=== PATIENT | female | born 1980 | race Caucasian/White ===

== ENCOUNTER 2022-02-06 18:55 | Emergency (ER) | payer OTHER, SELFPAY ==
--- NOTE | ~2022-02-06 | CT_ITS ---
EXAMINATION: CT ABDOMEN AND PELVIS WITH CONTRAST CLINICAL INFORMATION: Abdominal pain. Obstipation. History of gastric bypass. COMPARISON: 06.22.2016 TECHNIQUE: Multidetector volumetric images were obtained from the superior aspect of the liver through the pubic symphysis following administration 85 mL of Omnipaque 350 intravenous contrast. Sagittal and coronal reformatted images were obtained on the technologist's workstation. Oral contrast: No This CT examination was performed using dose optimization techniques as appropriate, variously including the following: *Automated exposure control *Adjustment of mA and/or kV according to patient size (this includes techniques or standardized protocols for targeted exams where dose is matched to indication/reason for exam; i.e. extremities or head) *Use of iterative reconstruction technique DLP: 737 mGy-cm FINDINGS: LUNG BASES: The visualized lung bases are unremarkable. LIVER, GALLBLADDER, AND BILIARY TREE: The liver is normal in size, shape, and attenuation. No focal hepatic lesion or biliary ductal dilatation is present. Cholecystectomy. PANCREAS: Unremarkable. SPLEEN: Unremarkable. ADRENAL GLANDS: Unremarkable. KIDNEYS AND URETERS: The kidneys are normal in size, shape, and attenuation. No hydronephrosis, hydroureter, or calculi seen. No perinephric stranding. BLADDER: Unremarkable. GASTROINTESTINAL TRACT: Rachel-en-Y gastric bypass. The biliopancreatic limb and rachel limbs, and respective anastomoses are unremarkable. Colon and appendix are unremarkable. ABDOMINAL WALL: No significant hernia is appreciated. LYMPH NODES: Normal. VASCULAR: Unremarkable. PELVIC VISCERA: Unremarkable. OSSEOUS STRUCTURES: Unremarkable. CT/CT abdomen pelvis w con IMPRESSION: No acute findings within the abdomen or pelvis to explain the patient's symptomatology.
--- NOTE | ~2022-02-06 | XR_ITS ---
EXAMINATION: XR CHEST CLINICAL INFORMATION: Weakness COMPARISON: 02/07/2012 TECHNIQUE: Frontal view of the chest was obtained. FINDINGS: No significant abnormality is noted involving the heart, lungs, mediastinum, bony thorax or soft tissues. XR/XR chest 1V IMPRESSION: Unremarkable examination.
[2022-02-06 19:12] VITALS: BP 138/86; PULSE 97; RESP 12; TEMP 37.1; O2SAT 100; BMI 28.1
--- NOTE | 2022-02-06 19:33 | ECG_ITS ---
Test Reason : WEAKNESS Blood Pressure : / mmHG Vent. Rate : 085 BPM Atrial Rate : 085 BPM P-R Int : 146 ms QRS Dur : 084 ms QT Int : 376 ms P-R-T Axes : 051 050 052 degrees QTc Int : 447 ms Normal sinus rhythm Normal ECG When compared to the previous EKG of No significant changes seen Referred By: Generic ED Physician Electronically Signed By:DEAN WHITMAN MD
[2022-02-06 20:04] LABS: MANUAL DIFF FLAG NO
[2022-02-06 20:06] LABS: Basophils Percent Auto 0.3 % (0-2); Eosinophils Absolute Auto 0.1 X10*3/uL (0.0-0.4); Eosinophils Percent Auto 1.2 % (0-4); Hematocrit 37.5 % (37.0-47.0); Hemoglobin 12.4 g/dl (12.0-16.0); Imm Gran Abs Auto 0.01 X10*3/uL (0.00-0.03); Imm Gran Pct Auto 0.1 % (0.0-0.4); Lymphocytes Absolute Auto 1.8 X10*3/uL (1.2-4.9); Lymphocytes Percent Auto 19.6 % (20-40); Mean Corpuscular HGB Conc 33.1 g/dl (31.0-35.0); Mean Corpuscular Hemoglobin 30.3 pg (27.0-33.0); Mean Corpuscular Volume 91.7 fL (80.0-98.0); Mean Platelet Volume 8.5 fL (9.4-12.3); Monocytes Absolute Auto 0.5 X10*3/uL (0.1-1.2); Monocytes Percent Auto 5.3 % (2-11); Neutrophils Absolute Auto 6.7 x10*3/uL (2.0-8.3); Neutrophils Percent Auto 73.5 % (45-73); Platelet Count 315 X10*3/uL (160-400); Red Blood Count 4.09 X10*6/uL (4.20-5.50); Red Cell Distribution Width 14.5 % (11.0-16.0); White Blood Count 9.1 X10*3/uL (4.8-10.8)
[2022-02-06 20:21] LABS: Anion Gap 11 (12-20); Blood Urea Nitrogen 15 mg/dL (9-16); Calcium 9.3 mg/dL (8.4-10.2); Carbon Dioxide 27 mmol/L (22-29); Chloride 107 mmol/L (96-108); Estimated Glomerular Filt Rate > 60; Glucose Random 88 mg/dL (60-115); Potassium 4.6 mmol/L (3.3-5.1); Sodium 140 mmol/L (135-145)
[2022-02-06 20:28] LABS: Troponin-I High Sensitivity < 3.5 ng/L (<3.5-17.0)
[2022-02-06 21:03] VITALS: BP 137/89; PULSE 81; RESP 16; TEMP 36.6; O2SAT 99
[2022-02-06 21:57] LABS: INTERNATIONAL NORM RATIO 0.9 (0.9-1.1); Lactic Acid 0.9 mmol/L (0.5-2.0)
[2022-02-06 22:11] LABS: OBS Int Ctl Valid YES; OBS1 NEGATIVE (NEGATIVE)
--- NOTE | 2022-02-06 22:28 | ED_ITS ---
HPI - General Adult General Chief complaint: General Medical Stated complaint: weakness, coffee ground stools Time Seen by Provider: 02/06/22 21:18 Source: patient Mode of arrival: ambulatory History of Present Illness HPI narrative: 41-year-old female with history of is gastric bypass presents with onset of back pain since last night associated with nausea, vomiting and ?coffee-ground stool? but denies any urinary pain/frequency/burning. Patient reports she is no longer passing flatus. Positive surgical history SBO, intussusception, for C-sections and cholecystectomy. Related Data Previous Rx's Medication Instructions Recorded famotidine 20 mg tablet (Pepcid) 20 mg PO BEDTIME 30 Days #30 tab 02/07/22 ondansetron 4 mg disintegrating 4 mg PO Q8H PRN #10 tab 02/07/22 tablet Allergies Allergy/AdvReac Type Severity Reaction Status Date / Time codeine [CODEINE] Allergy Intermediate HIVES Unverified 07/09/20 14:59 levofloxacin [From LEVAQUIN] Allergy Intermediate HIVES Unverified 07/09/20 14:59 ceftriaxone [From ROCEPHIN] Allergy Unknown HTN Unverified 07/09/20 14:59 morphine [MORPHINE] Allergy Unknown PALPITATION Unverified 07/09/20 14:59 S promethazine [Phenergan] Allergy Unknown Verified 06/14/18 00:00 From PHENERGAN Allergy Intermediate HIVES Uncoded 07/09/20 14:59 Effexor Allergy Unknown Uncoded 06/14/18 00:00 Review of Systems Review of Systems: Pertinent positives and negatives as stated in HPI 10 point review of systems is otherwise negative. PMFSH Past Medical History Source: nursing notes reviewed Social History Social History Advance Directives: No Advance Directives Information Provided: No Patient : No Physical Exam ED Vital Signs: Vital Signs - 24 hr 02/06/22 19:12 02/06/22 21:03 02/06/22 22:47 Temperature 98.8 F 97.8 F 98.4 F Pulse Rate 97 81 76 Respiratory Rate 12 16 14 Blood Pressure 138/86 137/89 134/92 H Pulse Oximetry 100 99 97 BMI result Body Mass Index 28.1 VITAL SIGNS: Reviewed. GENERAL: Well developed, well nourished, in no acute distress. HEAD: Normocephalic/atraumatic EYES: PERRLA, EOMI EARS: Ext canals without abnormality OROPHARYNX: no oral lesions noted, posterior pharynx clear LUNGS: Normal breath sounds. No adventitious sounds or accessory muscle use. SpO2<100> CARDIOVASCULAR: Regular rate and rhythm without noted murmurs, no JVD or lower extremity edema. ABDOMEN: Soft, mild discomfort on deep palpation, non-distended with hypoactive bowel sounds. ELA: No tags or lesions, empty rectal vault with scan stool, no blood, good rectal tone SKIN: Inspection of the skin reveals no rashes NEUROLOGIC: Alert and oriented x 4. Strength and sensation to light touch were grossly intact x 4. Course Course Course Narrative: 41-year-old female with history and clinical presentation suggestive of possible SBO but less likely felt to be GI bleed. Review of all investigations negative for acute findings. Patient was provided with Tylenol and Zofran in feels somewhat better and is able to tolerate p.o. intake. Patient was informed of all results and will be provided with a GI cocktail in discharged home in stable condition with antacid medication as well as antinausea medication. Medical Decision Making Lab Data Result diagrams: 02/06/22 19:56 02/06/22 19:56 Labs: Lab Results 02/06/22 02/06/22 02/06/22 Range/Units 19:56 19:56 19:56 WBC 9.1 (4.8-10.8) X10*3/uL RBC 4.09 L (4.20-5.50) X10*6/uL Hgb 12.4 (12.0-16.0) g/dl Hct 37.5 (37.0-47.0) % MCV 91.7 (80.0-98.0) fL MCH 30.3 (27.0-33.0) pg MCHC 33.1 (31.0-35.0) g/dl RDW 14.5 (11.0-16.0) % Plt Count 315 (160-400) X10*3/uL MPV 8.5 L (9.4-12.3) fL Immature Gran % (Auto) 0.1 (0.0-0.4) % Neut % (Auto) 73.5 H (45-73) % Lymph % (Auto) 19.6 L (20-40) % Davis % (Auto) 5.3 (2-11) % Eos % (Auto) 1.2 (0-4) % Baso % (Auto) 0.3 (0-2) % Lymph # (Auto) 1.8 (1.2-4.9) X10*3/uL Davis # (Auto) 0.5 (0.1-1.2) X10*3/uL Eos # (Auto) 0.1 (0.0-0.4) X10*3/uL Baso # (Auto) 0.0 (0.0-0.2) X10*3/uL Abs Immat Gran (auto) 0.01 (0.00-0.03) X10*3/uL Absolute Neuts (auto) 6.7 (2.0-8.3) x10*3/uL Absolute Nucleated RBC 0.000 (0.0-0.012) X10*3/uL Nucleated RBC % (auto) 0.0 (0.0-0.2) /100WBC PT (9.9-13.0) SEC INR (0.9-1.1) Sodium 140 (135-145) mmol/L Potassium 4.6 (3.3-5.1) mmol/L Chloride 107 (96-108) mmol/L Carbon Dioxide 27 (22-29) mmol/L Anion Gap 11 L (12-20) BUN 15 (9-16) mg/dL Creatinine 0.84 (0.5-1.4) mg/dL Estim Creat Clear Calc 100.0 Estimated GFR > 60 Random Glucose 88 (60-115) mg/dL Lactic Acid (0.5-2.0) mmol/L Calcium 9.3 (8.4-10.2) mg/dL Troponin I High Sens < 3.5 (<3.5-17.0) ng/L Beta HCG, Quant < 2 mIU/mL Urine Color Urine Appearance Urine pH (5.0-8.0) Ur Specific [place] (1.005-1.025) Urine Protein (NEG-TRACE) MG/DL Urine Glucose (UA) (NEG) MG/DL Urine Ketones (NEG) MG/DL Urine Blood (NEG) Urine Nitrite (NEG) Ur Leukocyte Esterase (NEG) Urine RBC (0) /HPF Urine WBC (0-4) /HPF Ur Squamous Epith Cells /LPF Calcium Phosphate Cryst /LPF Urine Bacteria /LPF Urine Mucus /LPF Stool Occult Blood (NEGATIVE) Influenza Type A (PATTI) (Negative) Influenza Type B (PATTI) (Negative) Influenza A & B Note 02/06/22 02/06/22 02/06/22 Range/Units 21:36 21:36 22:03 WBC (4.8-10.8) X10*3/uL RBC (4.20-5.50) X10*6/uL Hgb (12.0-16.0) g/dl Hct (37.0-47.0) % MCV (80.0-98.0) fL MCH (27.0-33.0) pg MCHC (31.0-35.0) g/dl RDW (11.0-16.0) % Plt Count (160-400) X10*3/uL MPV (9.4-12.3) fL Immature Gran % (Auto) (0.0-0.4) % Neut % (Auto) (45-73) % Lymph % (Auto) (20-40) % Davis % (Auto) (2-11) % Eos % (Auto) (0-4) % Baso % (Auto) (0-2) % Lymph # (Auto) (1.2-4.9) X10*3/uL Davis # (Auto) (0.1-1.2) X10*3/uL Eos # (Auto) (0.0-0.4) X10*3/uL Baso # (Auto) (0.0-0.2) X10*3/uL Abs Immat Gran (auto) (0.00-0.03) X10*3/uL Absolute Neuts (auto) (2.0-8.3) x10*3/uL Absolute Nucleated RBC (0.0-0.012) X10*3/uL Nucleated RBC % (auto) (0.0-0.2) /100WBC PT 10.0 (9.9-13.0) SEC INR 0.9 (0.9-1.1) Sodium (135-145) mmol/L Potassium (3.3-5.1) mmol/L Chloride (96-108) mmol/L Carbon Dioxide (22-29) mmol/L Anion Gap (12-20) BUN (9-16) mg/dL Creatinine (0.5-1.4) mg/dL Estim Creat Clear Calc Estimated GFR Random Glucose (60-115) mg/dL Lactic Acid 0.9 (0.5-2.0) mmol/L Calcium (8.4-10.2) mg/dL Troponin I High Sens (<3.5-17.0) ng/L Beta HCG, Quant mIU/mL Urine Color Urine Appearance Urine pH (5.0-8.0) Ur Specific [place] (1.005-1.025) Urine Protein (NEG-TRACE) MG/DL Urine Glucose (UA) (NEG) MG/DL Urine Ketones (NEG) MG/DL Urine Blood (NEG) Urine Nitrite (NEG) Ur Leukocyte Esterase (NEG) Urine RBC (0) /HPF Urine WBC (0-4) /HPF Ur Squamous Epith Cells /LPF Calcium Phosphate Cryst /LPF Urine Bacteria /LPF Urine Mucus /LPF Stool Occult Blood NEGATIVE (NEGATIVE) Influenza Type A (PATTI) (Negative) Influenza Type B (PATTI) (Negative) Influenza A & B Note 02/06/22 02/07/22 Range/Units 22:46 00:15 WBC (4.8-10.8) X10*3/uL RBC (4.20-5.50) X10*6/uL Hgb (12.0-16.0) g/dl Hct (37.0-47.0) % MCV (80.0-98.0) fL MCH (27.0-33.0) pg MCHC (31.0-35.0) g/dl RDW (11.0-16.0) % Plt Count (160-400) X10*3/uL MPV (9.4-12.3) fL Immature Gran % (Auto) (0.0-0.4) % Neut % (Auto) (45-73) % Lymph % (Auto) (20-40) % Davis % (Auto) (2-11) % Eos % (Auto) (0-4) % Baso % (Auto) (0-2) % Lymph # (Auto) (1.2-4.9) X10*3/uL Davis # (Auto) (0.1-1.2) X10*3/uL Eos # (Auto) (0.0-0.4) X10*3/uL Baso # (Auto) (0.0-0.2) X10*3/uL Abs Immat Gran (auto) (0.00-0.03) X10*3/uL Absolute Neuts (auto) (2.0-8.3) x10*3/uL Absolute Nucleated RBC (0.0-0.012) X10*3/uL Nucleated RBC % (auto) (0.0-0.2) /100WBC PT (9.9-13.0) SEC INR (0.9-1.1) Sodium (135-145) mmol/L Potassium (3.3-5.1) mmol/L Chloride (96-108) mmol/L Carbon Dioxide (22-29) mmol/L Anion Gap (12-20) BUN (9-16) mg/dL Creatinine (0.5-1.4) mg/dL Estim Creat Clear Calc Estimated GFR Random Glucose (60-115) mg/dL Lactic Acid (0.5-2.0) mmol/L Calcium (8.4-10.2) mg/dL Troponin I High Sens (<3.5-17.0) ng/L Beta HCG, Quant mIU/mL Urine Color YELLOW Urine Appearance CLEAR Urine pH 5.5 (5.0-8.0) Ur Specific [place] 1.025 (1.005-1.025) Urine Protein NEG (NEG-TRACE) MG/DL Urine Glucose (UA) NEG (NEG) MG/DL Urine Ketones NEG (NEG) MG/DL Urine Blood TRACE (NEG) Urine Nitrite NEG (NEG) Ur Leukocyte Esterase NEG (NEG) Urine RBC 0-2 (0) /HPF Urine WBC 0 (0-4) /HPF Ur Squamous Epith Cells 1+ /LPF Calcium Phosphate Cryst TRACE /LPF Urine Bacteria TRACE /LPF Urine Mucus 1+ /LPF Stool Occult Blood (NEGATIVE) Influenza Type A (PATTI) Negative (Negative) Influenza Type B (PATTI) Negative (Negative) Influenza A & B Note See Note Discharge Plan Discharge Clinical Impression: Gastroesophageal reflux disease, Headache Patient Disposition: Home, Self-Care Instructions: Diet for Stomach Ulcers and Gastritis (ED), Gastroesophageal Reflux Disease (ED), General Headache (ED) Additional Instructions: 1. Resume all home medications as prescribed. 2. You have been prescribed both antacid medication as well as antinausea medication. 3. Despite you having a negative workup today I highly recommend that you follow-up with primary care provider by calling the office 1st thing in the morning and setting up an appointment for re-evaluation further outpatient management. Return to the ER for worsening symptoms. Prescriptions: New famotidine [Pepcid] 20 mg tablet 20 mg PO BEDTIME 30 Days Qty: 30 0RF ondansetron 4 mg tablet,disintegrating 4 mg PO Q8H PRN (Reason: nausea and vomiting) Qty: 10 0RF Referrals: Alan Bustos MD [Primary Care Provider] -
[2022-02-06 22:47] VITALS: BP 134/92; PULSE 76; RESP 14; TEMP 36.9; O2SAT 97
[2022-02-06 22:59] LABS: Appearance Urine CLEAR; Color Urine YELLOW; Glucose Urine UA NEG (NEG); Leukocyte Esterase Urine NEG (NEG); Nitrite Urine NEG (NEG); PH 5.5 (5.0-8.0); Specific Gravity - Urine 1.025 (1.005-1.025); UACC Culture Trigger NO; Urine Blood TRACE (NEG); Urine Ketones NEG (NEG); Urine Protein NEG (NEG-TRACE)
[2022-02-06 23:02] LABS: HCG Quantitative < 2 mIU/mL
[2022-02-06 23:05] LABS: Bacteria Urine TRACE /LPF; Calcium Phosphate Crystals Ur TRACE /LPF; Mucus Urine 1+ /LPF; RBC Urine 0-2 /HPF (0); Squamous Epithelial Cell Urine 1+ /LPF; WBC Urine 0 /HPF (0-4)
[2022-02-07] MEDS: ondansetron HCL 4 MG/2 ML VIAL IVPUSH (00:01)
[2022-02-07] MEDS: Acetaminophen 325 MG TABLET 975 MG PO (00:11)
[2022-02-07 00:36] LABS: Influenza A Negative (Negative); Influenza B2 Negative (Negative)
[2022-02-07] MEDS: iohexoL 350 MG/ML 100 ML INFUS..BTL 85 ML IV (00:50)
[2022-02-07] MEDS: Ketorolac Tromethamine 30 MG/ML VIAL 15 MG IVPUSH (02:06)
[2022-02-07] MEDS: Magnesium Hydrox/Alum Hydrox 30 ML ORAL.SUSP PO (02:07)
[2022-02-07] MEDS: Lidocaine HCl Viscous 2 % 15 ML SOLUTION 10 ML MUCOUS MEM (02:07)
[2022-02-07 02:14] VITALS: BP 132/94; PULSE 78; RESP 16; TEMP 36.7; O2SAT 98
== END 2022-02-07 03:05 | disposition home or self-care (01) ==
PROVIDERS: Emergency Provider Student in an Organized Health Care Education/Training Program; PCP Family Medicine
DX: K21.9 Gastro-esophageal reflux disease without esophagitis (principal); R51.9 Headache, unspecified; Z98.84 Bariatric surgery status; Z90.49 Acquired absence of other specified parts of digestive tract
CPT/HCPCS: 36415; 71045; 74177; 80048; 81001; 82272; 83605; 84484; 84702; 85025; 85610; 87040; 87502; 93005; 96374; 96375; 99284; J1885; J2405; Q9967

== ENCOUNTER 2023-06-10 20:41 | Emergency (ER) | payer OTHER, SELFPAY ==
--- NOTE | 2023-06-10 20:44 | ED_ITS ---
HPI - Abdominal Pain General Chief Complaint: Abdominal Pain Stated Complaint: abd pain ?cdiff Time Seen by Provider: 06/10/23 23:15 Source: patient Mode of arrival: ambulatory Limitations: no limitations History of Present Illness HPI narrative: Pain anxiety ADHD recent admission at [facility] 2 weeks ago for questionable SBO status post laparotomy comes here for 4 days of diarrhea with nausea multiple bowel movements watery and foul smell was seen at [facility] and admitted but she came back to our hospital as she did not like the service at [facility],result of C diff was not back yet asking for pain medication on arrival patient was given antibiotics 2 weeks ago patient does have history of depression and anxiety Related Data Home Medications Medication Instructions Recorded Confirmed clonazepam 1 mg tablet 1 mg PO BEDTIME PRN anxiety 06/11/23 06/11/23 methylphenidate HCl 20 mg tablet 20 mg PO QID 06/11/23 06/11/23 pantoprazole 40 mg tablet,delayed 40 mg PO DAILY 06/11/23 06/11/23 release Previous Rx's Medication Instructions Recorded dicyclomine 20 mg tablet 20 mg PO TID PRN abdominal pain 06/11/23 #20 tabs Allergies Allergy/AdvReac Type Severity Reaction Status Date / Time codeine [CODEINE] Allergy Intermediate HIVES Unverified 06/11/23 00:45 levofloxacin [From LEVAQUIN] Allergy Intermediate HIVES Unverified 06/11/23 00:45 ceftriaxone [From ROCEPHIN] Allergy Unknown HTN Unverified 06/11/23 00:45 morphine [MORPHINE] Allergy Unknown PALPITATION Unverified 06/11/23 00:45 S promethazine [Phenergan] Allergy Unknown Muscle Verified 06/11/23 00:45 cramps From PHENERGAN Allergy Intermediate HIVES Uncoded 06/11/23 00:45 Effexor Allergy Unknown Unknown Uncoded 06/11/23 00:45 Review of Systems Review of Systems Yes all other systems are reviewed and are negative PMFSH Past Medical History Medical History (Updated 06/11/23 @ 17:10 by Carlin Clifton MD) ADHD Depression with anxiety Social History Social History Alcohol intake: unknown Use of substances other than those prescribed or required for medical reasons: Unknown Advance Directives: No Patient : No Physical Exam ED Vital Signs: Vital Signs - 24 hr 06/10/23 20:45 06/10/23 22:55 06/10/23 23:42 Temperature 98.1 F 98.3 F 98.3 F Pulse Rate 97 94 84 Respiratory Rate 20 18 16 Blood Pressure 144/105 H 147/89 H 145/94 H Pulse Oximetry 98 99 98 Oxygen Delivery Method Room Air Room Air Room Air 06/11/23 01:44 06/11/23 03:29 06/11/23 02:44 Temperature 98.2 F 98.3 F Pulse Rate 87 90 74 Respiratory Rate 16 20 Blood Pressure 135/87 113/92 H 134/90 H Pulse Oximetry 96 97 95 Oxygen Delivery Method Room Air Room Air Room Air 06/11/23 02:49 06/11/23 03:41 06/11/23 03:44 Temperature Pulse Rate Respiratory Rate 18 18 16 Blood Pressure Pulse Oximetry Oxygen Delivery Method BMI result Body Mass Index 29.0 Appearance: Alert. Oriented X3. Very anxious Eyes: PERRLA, No Nystagmus ENT: Pharynx normal. Oral Mucosa moist Neck: Normal inspection. Neck supple. CVS: Normal heart rate and rhythm. Pulses normal. Respiratory: No respiratory distress. Equal air entry bilateral, no wheezing/rales/rhonchi Abdomen: Soft mild diffuse tenderness, no guarding or rebound tenderness Bowel sounds are present, no mass palpable, no CVA tenderness Skin: Skin warm and dry. Normal skin color. Normal skin turgor. Extremities: No lower extremity edema. No calf tenderness Neuro: Oriented X 3. No motor deficit. No sensory deficit.No cerebellar signs , cranial nerves II-XII intact Course Course Course Narrative: This is a rapid medical exam. Deferred additional HPI, ROS, PE to primary provider. 42 yo female with past medical history of hydrocephalus with [employer] shunt, SBO, intussusception, C-sections and cholecystectomy here with complaints of abdominal pain, diarrhea x 4 days. Had exploratory laparatomy w/ adhesion removal 4 weeks ago (Dr Ross). Patient report she has [place] [facility] [place] but eloped because she didn't feel she was getting the appropriate care. Will obtain labs, UA, stool studies. VSS. Reevaluation(s) Reevaluation #1: Physician observation continued. patient currently more somnolent after medications but seems to be fighting sedation at times walking around without pants on and needing to be redirected by staff. she is no longer hostile. She will need reassessments by staff and CARE team once she is no longer sedated and more appropriate. C diff test was negative. Reevaluation #2: Patient seen by care team advised discharge the patient home patient stable mood at this time discharge patient follow up with therapist Time: 17:11 Medical Decision Making Medical Decision Making [facility] Narrative: Patient just had 1 watery bowel in the ER C diff was negative labs were stable patient is still asking for pain medication when was refused to give her pain m edication she was very angry and said to the nurse as he is suicidal and cut her throat . Per record she has increasing Klonopin and received oxycodone on 05/29 patient was Section 12 for suicidal comments with the plan for crisis evaluation patient was very agitated has 4 point restraints were applied and patient was received Haldol Ativan and Benadryl. Nurse spoke to the patient's who agreed that patient been commenting about suicide feeling at home also with get crisis evaluation Lab Data [facility] Lab Attestation statement: I reviewed the patient's lab results. 06/10/23 21:11 06/10/23 21:11 Labs: Lab Results 06/10/23 06/10/23 06/10/23 Range/Units 21:11 21:11 23:57 WBC 7.9 (4.8-10.8) X10*3/uL RBC 3.72 L (4.20-5.50) X10*6/uL Hgb 11.2 L (12.0-16.0) g/dl Hct 33.8 L (37.0-47.0) % MCV 90.9 (80.0-98.0) fL MCH 30.1 (27.0-33.0) pg MCHC 33.1 (31.0-35.0) g/dl RDW 13.9 (11.0-16.0) % Plt Count 252 (160-400) X10*3/uL MPV 8.2 L (9.4-12.3) fL Immature Gran % (Auto) 0.1 (0.0-0.4) % Neut % (Auto) 52.2 (45-73) % Lymph % (Auto) 32.6 (20-40) % [place] % (Auto) 6.7 (2-11) % Eos % (Auto) 8.0 H (0-4) % Baso % (Auto) 0.4 (0-2) % Lymph # (Auto) 2.6 (1.2-4.9) X10*3/uL [place] # (Auto) 0.5 (0.1-1.2) X10*3/uL Eos # (Auto) 0.6 H (0.0-0.4) X10*3/uL Baso # (Auto) 0.0 (0.0-0.2) X10*3/uL Abs Immat Gran (auto) 0.01 (0.00-0.03) X10*3/uL Absolute Neuts (auto) 4.1 (2.0-8.3) x10*3/uL Absolute Nucleated RBC 0.000 (0.0-0.012) X10*3/uL Nucleated RBC % (auto) 0.0 (0.0-0.2) /100WBC Sodium 142 (135-145) mmol/L Potassium 3.4 D (3.3-5.1) mmol/L Chloride 108 (96-108) mmol/L Carbon Dioxide 26 (22-29) mmol/L Anion Gap 11 L (12-20) BUN 12 (9-16) mg/dL Creatinine 0.85 (0.5-1.4) mg/dL Estim Creat Clear Calc 96.0 Estimated GFR > 60 Random Glucose 83 (60-115) mg/dL Calcium 9.5 (8.4-10.2) mg/dL Magnesium 1.5 L (1.6-2.6) mg/dL Total Bilirubin 0.8 (0.0-1.0) mg/dL Direct Bilirubin 0.3 (0.0-0.5) mg/dL AST 21 (5-31) U/L ALT 12 (0-31) U/L Alkaline Phosphatase 73 (39-117) U/L Total Protein 6.4 L (6.5-8.0) g/dL Albumin 4.0 (3.5-5.0) g/dL Urine Color Yellow Urine Appearance Cloudy Urine pH 6.0 (5.0-9.0) Ur Specific [place] 1.020 (1.005-1.025) Urine Protein 100 (2+) H (Neg-Trace) mg/dL Urine Glucose (UA) Negative (Negative) mg/dL Urine Ketones 15 (Negative) mg/dL Urine Blood Trace H (Negative) Urine Nitrite Negative (Negative) Ur Leukocyte Esterase Trace H (Negative) Urine RBC 11-20 H (0-2) /HPF Urine WBC 0-5 (0-5) /HPF Ur Squamous Epith Cells 11-20 (0-2) /HPF Urine Bacteria None Seen (None Seen) Hyaline Casts 11-20 (0-2) /LPF Urine Test (NEGATIVE) Stl C. cayetanensis PCR (Not Detect.) Stool Rotavirus A PCR (Not Detect.) Stl Adenov F 40/41 PCR (Not Detect.) Stool Astrovirus (PCR) (Not Detect.) Stool Campylobacter PCR (Not Detect.) Stool Cryptosporidium PCR (Not Detect.) Stl Sh Tox Pr E STEC PCR (Not Detect.) Stool E coli O157 PCR (Not Detect.) Stl Enterotoxigenic E PCR (Not Detect.) Stool EPEC (PCR) (Not Detect.) Stool EAEC (PCR) (Not Detect.) Stl E. histolytica PCR (Not Detect.) Stool Giardia Lamblia PCR (Not Detect.) Stl P. shigelloides PCR (Not Detect.) Stool Salmonella PCR (Not Detect.) Stool Sapovirus (PCR) (Not Detect.) Stl Shigella/EIEC PCR (Not Detect.) St Y.enterocolitica PCR (Not Detect.) Stool Vibrio (PCR) (Not Detect.) Stl Vibrio cholerae PCR (Not Detect.) Stl Norovirus GI/GII PCR (Not Detect.) Urine Opiates Screen (Not Detect) Urine Fentanyl Screen (Not Detect) Ur Barbiturates Screen (Not Detect) Ur Phencyclidine Scrn (Not Detect) Ur Amphetamines Screen (Not Detect) U Benzodiazepines Scrn (Not Detect) Urine Cocaine Screen (Not Detect) U Marijuana (THC) Screen (Not Detect) Ethyl Alcohol < 10 mg/dL C. difficile Tox B Gene (Negative) 06/10/23 06/10/23 06/10/23 Range/Units 23:57 23:57 23:57 WBC (4.8-10.8) X10*3/uL RBC (4.20-5.50) X10*6/uL Hgb (12.0-16.0) g/dl Hct (37.0-47.0) % MCV (80.0-98.0) fL MCH (27.0-33.0) pg MCHC (31.0-35.0) g/dl RDW (11.0-16.0) % Plt Count (160-400) X10*3/uL MPV (9.4-12.3) fL Immature Gran % (Auto) (0.0-0.4) % Neut % (Auto) (45-73) % Lymph % (Auto) (20-40) % [place] % (Auto) (2-11) % Eos % (Auto) (0-4) % Baso % (Auto) (0-2) % Lymph # (Auto) (1.2-4.9) X10*3/uL [place] # (Auto) (0.1-1.2) X10*3/uL Eos # (Auto) (0.0-0.4) X10*3/uL Baso # (Auto) (0.0-0.2) X10*3/uL Abs Immat Gran (auto) (0.00-0.03) X10*3/uL Absolute Neuts (auto) (2.0-8.3) x10*3/uL Absolute Nucleated RBC (0.0-0.012) X10*3/uL Nucleated RBC % (auto) (0.0-0.2) /100WBC Sodium (135-145) mmol/L Potassium (3.3-5.1) mmol/L Chloride (96-108) mmol/L Carbon Dioxide (22-29) mmol/L Anion Gap (12-20) BUN (9-16) mg/dL Creatinine (0.5-1.4) mg/dL Estim Creat Clear Calc Estimated GFR Random Glucose (60-115) mg/dL Calcium (8.4-10.2) mg/dL Magnesium (1.6-2.6) mg/dL Total Bilirubin (0.0-1.0) mg/dL Direct Bilirubin (0.0-0.5) mg/dL AST (5-31) U/L ALT (0-31) U/L Alkaline Phosphatase (39-117) U/L Total Protein (6.5-8.0) g/dL Albumin (3.5-5.0) g/dL Urine Color Urine Appearance Urine pH (5.0-9.0) Ur Specific Monroe (1.005-1.025) Urine Protein (Neg-Trace) mg/dL Urine Glucose (UA) (Negative) mg/dL Urine Ketones (Negative) mg/dL Urine Blood (Negative) Urine Nitrite (Negative) Ur Leukocyte Esterase (Negative) Urine RBC (0-2) /HPF Urine WBC (0-5) /HPF Ur Squamous Epith Cells (0-2) /HPF Urine Bacteria (None Seen) Hyaline Casts (0-2) /LPF Urine Test NEGATIVE (NEGATIVE) Stl C. cayetanensis PCR Not Detected (Not Detect.) Stool Rotavirus A PCR Not Detected (Not Detect.) Stl Adenov F 40/41 PCR Not Detected (Not Detect.) Stool Astrovirus (PCR) Not Detected (Not Detect.) Stool Campylobacter PCR Not Detected (Not Detect.) Stool Cryptosporidium PCR Not Detected (Not Detect.) Stl Sh Tox Pr E STEC PCR Not Detected (Not Detect.) Stool E coli O157 PCR Not applicable (Not Detect.) Stl Enterotoxigenic E PCR Not Detected (Not Detect.) Stool EPEC (PCR) Not Detected (Not Detect.) Stool EAEC (PCR) Not Detected (Not Detect.) Stl E. histolytica PCR Not Detected (Not Detect.) Stool Giardia Lamblia PCR Not Detected (Not Detect.) Stl P. shigelloides PCR Not Detected (Not Detect.) Stool Salmonella PCR Not Detected (Not Detect.) Stool Sapovirus (PCR) Not Detected (Not Detect.) Stl Shigella/EIEC PCR Not Detected (Not Detect.) St Y.enterocolitica PCR Not Detected (Not Detect.) Stool Vibrio (PCR) Not Detected (Not Detect.) Stl Vibrio cholerae PCR Not Detected (Not Detect.) Stl Norovirus GI/GII PCR Not Detected (Not Detect.) Urine Opiates Screen (Not Detect) Urine Fentanyl Screen (Not Detect) Ur Barbiturates Screen (Not Detect) Ur Phencyclidine Scrn (Not Detect) Ur Amphetamines Screen (Not Detect) U Benzodiazepines Scrn (Not Detect) Urine Cocaine Screen (Not Detect) U Marijuana (THC) Screen (Not Detect) Ethyl Alcohol mg/dL C. difficile Tox B Gene NEGATIVE (Negative) 06/10/23 Range/Units 23:57 WBC (4.8-10.8) X10*3/uL RBC (4.20-5.50) X10*6/uL Hgb (12.0-16.0) g/dl Hct (37.0-47.0) % MCV (80.0-98.0) fL MCH (27.0-33.0) pg MCHC (31.0-35.0) g/dl RDW (11.0-16.0) % Plt Count (160-400) X10*3/uL MPV (9.4-12.3) fL Immature Gran % (Auto) (0.0-0.4) % Neut % (Auto) (45-73) % Lymph % (Auto) (20-40) % [place] % (Auto) (2-11) % Eos % (Auto) (0-4) % Baso % (Auto) (0-2) % Lymph # (Auto) (1.2-4.9) X10*3/uL [place] # (Auto) (0.1-1.2) X10*3/uL Eos # (Auto) (0.0-0.4) X10*3/uL Baso # (Auto) (0.0-0.2) X10*3/uL Abs Immat Gran (auto) (0.00-0.03) X10*3/uL Absolute Neuts (auto) (2.0-8.3) x10*3/uL Absolute Nucleated RBC (0.0-0.012) X10*3/uL Nucleated RBC % (auto) (0.0-0.2) /100WBC Sodium (135-145) mmol/L Potassium (3.3-5.1) mmol/L Chloride (96-108) mmol/L Carbon Dioxide (22-29) mmol/L Anion Gap (12-20) BUN (9-16) mg/dL Creatinine (0.5-1.4) mg/dL Estim Creat Clear Calc Estimated GFR Random Glucose (60-115) mg/dL Calcium (8.4-10.2) mg/dL Magnesium (1.6-2.6) mg/dL Total Bilirubin (0.0-1.0) mg/dL Direct Bilirubin (0.0-0.5) mg/dL AST (5-31) U/L ALT (0-31) U/L Alkaline Phosphatase (39-117) U/L Total Protein (6.5-8.0) g/dL Albumin (3.5-5.0) g/dL Urine Color Urine Appearance Urine pH (5.0-9.0) Ur Specific [place] (1.005-1.025) Urine Protein (Neg-Trace) mg/dL Urine Glucose (UA) (Negative) mg/dL Urine Ketones (Negative) mg/dL Urine Blood (Negative) Urine Nitrite (Negative) Ur Leukocyte Esterase (Negative) Urine RBC (0-2) /HPF Urine WBC (0-5) /HPF Ur Squamous Epith Cells (0-2) /HPF Urine Bacteria (None Seen) Hyaline Casts (0-2) /LPF Urine Test (NEGATIVE) Stl C. cayetanensis PCR (Not Detect.) Stool Rotavirus A PCR (Not Detect.) Stl Adenov F 40/41 PCR (Not Detect.) Stool Astrovirus (PCR) (Not Detect.) Stool Campylobacter PCR (Not Detect.) Stool Cryptosporidium PCR (Not Detect.) Stl Sh Tox Pr E STEC PCR (Not Detect.) Stool E coli O157 PCR (Not Detect.) Stl Enterotoxigenic E PCR (Not Detect.) Stool EPEC (PCR) (Not Detect.) Stool EAEC (PCR) (Not Detect.) Stl E. histolytica PCR (Not Detect.) Stool Giardia Lamblia PCR (Not Detect.) Stl P. shigelloides PCR (Not Detect.) Stool Salmonella PCR (Not Detect.) Stool Sapovirus (PCR) (Not Detect.) Stl Shigella/EIEC PCR (Not Detect.) St Y.enterocolitica PCR (Not Detect.) Stool Vibrio (PCR) (Not Detect.) Stl Vibrio cholerae PCR (Not Detect.) Stl Norovirus GI/GII PCR (Not Detect.) Urine Opiates Screen POSITIVE H (Not Detect) Urine Fentanyl Screen SEE COMMENTS (Not Detect) Ur Barbiturates Screen Not Detected (Not Detect) Ur Phencyclidine Scrn Not Detected (Not Detect) Ur Amphetamines Screen Not Detected (Not Detect) U Benzodiazepines Scrn Not Detected (Not Detect) Urine Cocaine Screen Not Detected (Not Detect) U Marijuana (THC) Screen Not Detected (Not Detect) Ethyl Alcohol mg/dL C. difficile Tox B Gene (Negative) Medications Administered Discontinued Medications Generic Name Dose Route Start Last Admin Trade Name Freq PRN Reason Stop Dose Admin Dicyclomine HCl 20 mg 06/11/23 00:21 06/11/23 00:38 Dicyclomine Hcl 10 Mg Capsule PO 06/11/23 00:22 20 mg ONCE ONE Administration Diphenhydramine HCl 50 mg 06/11/23 02:40 06/11/23 02:44 Diphenhydramine Hcl 50 Mg/Ml Vial IM 06/11/23 02:41 50 mg ONCE ONE Administration Haloperidol Lactate 5 mg 06/11/23 02:40 06/11/23 02:44 Haloperidol Lactate 5 Mg/Ml Vial IM 06/11/23 02:41 5 mg STAT STA Administration Lorazepam 2 mg 06/11/23 00:21 06/11/23 00:39 Lorazepam 2 Mg/Ml Vial IM 06/11/23 00:22 2 mg ONCE ONE Administration Lorazepam 2 mg 06/11/23 02:40 06/11/23 02:44 Lorazepam 2 Mg/Ml Vial IM 06/11/23 02:41 2 mg ONCE ONE Administration Ondansetron HCl 4 mg 06/11/23 00:21 06/11/23 00:37 Ondansetron Odt 4 Mg Tab.Rapdis TRANSLINGU 06/11/23 00:22 4 mg ONCE ONE Administration Ziprasidone 20 mg 06/11/23 04:32 06/11/23 05:23 Ziprasidone 20 Mg Capsule PO 06/11/23 04:33 20 mg ONCE ONE Administration Discharge Plan Discharge Clinical Impression: Irritable bowel syndrome, Adjustment disorder Patient Disposition: Home, Self-Care Instructions: Irritable Bowel Syndrome (ED), Mood Disorders (ED) Additional Instructions: Take your Klonopin for anxiety Dicyclomine for abdominal pain as prescribed You Do not have C diff infection Follow-up with your therapist/psychiatric Prescriptions: New dicyclomine 20 mg tablet 20 mg PO TID PRN (Reason: abdominal pain) Qty: 20 0RF No Action methylphenidate HCl 20 mg tablet 20 mg PO QID clonazepam 1 mg tablet 1 mg PO BEDTIME PRN (Reason: anxiety) pantoprazole 40 mg tablet,delayed release (DR/EC) 40 mg PO DAILY
[2023-06-10 20:45] VITALS: BP 144/105; PULSE 97; RESP 20; TEMP 36.7; O2SAT 98; BMI 29.0
[2023-06-10 21:15] LABS: MANUAL DIFF FLAG NO
[2023-06-10 21:18] LABS: Basophils Percent Auto 0.4 % (0-2); Eosinophils Absolute Auto 0.6 X10*3/uL (0.0-0.4); Hematocrit 33.8 % (37.0-47.0); Hemoglobin 11.2 g/dl (12.0-16.0); Imm Gran Abs Auto 0.01 X10*3/uL (0.00-0.03); Imm Gran Pct Auto 0.1 % (0.0-0.4); Lymphocytes Absolute Auto 2.6 X10*3/uL (1.2-4.9); Lymphocytes Percent Auto 32.6 % (20-40); Mean Corpuscular HGB Conc 33.1 g/dl (31.0-35.0); Mean Corpuscular Hemoglobin 30.1 pg (27.0-33.0); Mean Corpuscular Volume 90.9 fL (80.0-98.0); Mean Platelet Volume 8.2 fL (9.4-12.3); Monocytes Absolute Auto 0.5 X10*3/uL (0.1-1.2); Monocytes Percent Auto 6.7 % (2-11); Neutrophils Absolute Auto 4.1 x10*3/uL (2.0-8.3); Neutrophils Percent Auto 52.2 % (45-73); Platelet Count 252 X10*3/uL (160-400); Red Blood Count 3.72 X10*6/uL (4.20-5.50); Red Cell Distribution Width 13.9 % (11.0-16.0); White Blood Count 7.9 X10*3/uL (4.8-10.8)
[2023-06-10 21:29] LABS: Alanine Aminotransferase 12 U/L (0-31); Alkaline Phosphatase 73 U/L (39-117); Anion Gap 11 (12-20); Aspartate Amino Transferase 21 U/L (5-31); Bilirubin Direct 0.3 mg/dL (0.0-0.5); Bilirubin Total 0.8 mg/dL (0.0-1.0); Blood Urea Nitrogen 12 mg/dL (9-16); Calcium 9.5 mg/dL (8.4-10.2); Carbon Dioxide 26 mmol/L (22-29); Chloride 108 mmol/L (96-108); Estimated Glomerular Filt Rate > 60; Glucose Random 83 mg/dL (60-115); Magnesium 1.5 mg/dL (1.6-2.6); Potassium 3.4 mmol/L (3.3-5.1); Sodium 142 mmol/L (135-145); Total Protein 6.4 g/dL (6.5-8.0)
[2023-06-10 22:55] VITALS: BP 147/89; PULSE 94; RESP 18; TEMP 36.8; O2SAT 99
[2023-06-10 23:42] VITALS: BP 145/94; PULSE 84; RESP 16; TEMP 36.8; O2SAT 98
--- NOTE | 2023-06-11 00:01 | MHC.EDTECH ---
THIS PCT JUST ASSUMED CARE OF PATIENT ,VITALS SIGN TAKEN ,PT URINE AND STOOL SAMPLE COLLECTED AND SENT TO LAB ,PATIENT SAID SHE IS IN A LOT OF PAIN ,RN MATTHEW IS AWARE ,WARM BLANKET GIVEN .
--- NOTE | 2023-06-11 00:15 | PC.NURSE ---
notified of pain.
[2023-06-11 00:24] LABS: Appearance Urine Cloudy; Color Urine Yellow; Glucose Urine UA Negative (Negative); Leukocyte Esterase Urine Trace (Negative); Nitrite Urine Negative (Negative); UMIC TRIGGER UACC YES; Urine Blood Trace (Negative); Urine Ketones 15 mg/dL (Negative); Urine Protein 100 (2+) mg/dL (Neg-Trace)
[2023-06-11 00:29] LABS: UPreg QC Valid YES; Urine Pregnancy NEGATIVE (NEGATIVE)
[2023-06-11] MEDS: Ondansetron ODT 4 MG TAB.RAPDIS TRANSLINGU (00:37)
[2023-06-11] MEDS: Dicyclomine HCl 10 MG CAPSULE 20 MG PO (00:38)
[2023-06-11] MEDS: LORazepam 2 MG/ML VIAL IM ×2 (00:39→02:44)
--- NOTE | 2023-06-11 00:41 | PC.NURSE ---
im ATIVAN GIVEN per pt request- for abd pain.
[2023-06-11 01:07] LABS: Bacteria Urine None Seen (None Seen); WBC Urine 0-5 /HPF (0-5)
[2023-06-11 01:22] LABS: CDiff Gene PCR NEGATIVE (Negative)
[2023-06-11 01:44] VITALS: BP 135/87; PULSE 87; RESP 16; TEMP 36.8; O2SAT 96
[2023-06-11 02:44] VITALS: BP 134/90; PULSE 74; RESP 20; O2SAT 95
[2023-06-11] MEDS: Haloperidol Lactate 5 MG/ML VIAL IM (02:44)
[2023-06-11] MEDS: diphenhydrAMINE HCL 50 MG/ML VIAL IM (02:44)
--- NOTE | 2023-06-11 02:45 | PC.NURSE ---
Pt in physical restraints with 1;1 at this time. Chemical restraint (Haldol 5mg, Ativan 2mg, Benadryl 50mg Im) given per verbal order due to escalating physically behavior.
[2023-06-11 02:49] VITALS: RESP 18
[2023-06-11 02:49] LABS: Amphetamine Screen Urine Not Detected (Not Detect); Barbiturates, Urine Not Detected (Not Detect); Benzodiazepines Screen Urine Not Detected (Not Detect); Cannabinoid Screen Urine Not Detected (Not Detect); Cocaine Screen Urine Not Detected (Not Detect); Opiate Screen Urine POSITIVE (Not Detect); Phencyclidine Screen Urine Not Detected (Not Detect)
[2023-06-11 02:54] LABS: Ethanol < 10 mg/dL
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
[2023-06-11 03:29] VITALS: BP 113/92; PULSE 90; TEMP 36.8; O2SAT 97
[2023-06-11 03:41] VITALS: RESP 18
[2023-06-11 03:44] VITALS: RESP 16
[2023-06-11] MEDS: Ziprasidone 20 MG CAPSULE PO (05:23)
--- NOTE | 2023-06-11 05:33 | PC.NURSE ---
Patient was transferred from main ED on bed in four point restraint, restraint immediately removed at 025, patient continues was in and out of bed numerous time requiring constant redirection, no effect from chemical restraint from main ed, Provider notified for restlessness/ordered Geodon 20 mg PO/administered late at 05 due to difficulty accessing medication/pending effect, med rec completed/pending provider's approval, patient was placed on section-12 by Doctor Lainez for endorsing SI also corroborated by Chivo her , care consult ordered/pending evaluation, patient resistant with direction, behavior unpredictable, VSS, will continue to monitor
[2023-06-11 09:41] LABS: Adenovirus F 40/41 Not Detected (Not Detect.); Astrovirus Not Detected (Not Detect.); Campylobacter Not Detected (Not Detect.); Cryptosporidium Not Detected (Not Detect.); Cyclospora cayetanensis Not Detected (Not Detect.); E. coli EAEC Not Detected (Not Detect.); E. coli EPEC Not Detected (Not Detect.); E. coli ETEC Not Detected (Not Detect.); E. coli STEC Not Detected (Not Detect.); Entamoeba histolytica Not Detected (Not Detect.); Giardia lamblia Not Detected (Not Detect.); Norovirus GI/GII Not Detected (Not Detect.); Plesiomonas shigelloides Not Detected (Not Detect.); Rotavirus A Not Detected (Not Detect.); Salmonella Not Detected (Not Detect.); Sapovirus Not Detected (Not Detect.); Shigella sp./EIEC Not Detected (Not Detect.); Vibrio Not Detected (Not Detect.); Vibrio Cholerae Not Detected (Not Detect.); Yersinia enterocolitica Not Detected (Not Detect.)
[2023-06-11 12:58] LABS: Fentanyl, urine SEE COMMENTS (Not Detect)
--- NOTE | 2023-06-11 14:36 | PC.NURSE ---
Hilaria has remained in her room in bed resting for most of today. Several instances of incontinence of feces. Bedding changed and Hilaria was given clean clothes and took a shower. No medications given. Minimal fluid taken PO.
== END 2023-06-11 17:39 | disposition home or self-care (01) ==
PROVIDERS: Nurse Practitioner Family; Emergency Provider Internal Medicine
DX: K58.0 Irritable bowel syndrome with diarrhea (principal); F43.20 Adjustment disorder, unspecified; R45.1 Restlessness and agitation; R45.851 Suicidal ideations; F41.8 Other specified anxiety disorders; F90.9 Attention-deficit hyperactivity disorder, unspecified type; Z79.899 Other long term (current) drug therapy
CPT/HCPCS: 36415; 80048; 80076; 80307; 80354; 81001; 81025; 83735; 85025; 87493; 87507; 96372; 99284; 99285; J1200; J2060; S9485